=== PATIENT | female | born 1965 | race Caucasian/White ===

== ENCOUNTER 2022-10-29 11:09 | Outpatient (CLI) | payer OTHER, SELFPAY ==
--- NOTE | 2022-10-29 11:30 | CRLHL7_ITS ---
For Patients: As a result of the Cures Act, medical imaging exams and procedure reports are released immediately into your electronic medical record. You may view this report before your referring provider. If you have questions, please contact your health care provider. BILATERAL SCREENING MAMMOGRAM WITH COMPUTER-AIDED DETECTION AND TOMOSYNTHESIS TECHNIQUE: CC and MLO views were obtained. These mammographic images have been obtained using full-field digital technique. These mammographic images were interpreted with the benefit of computer-aided detection. Breast Tomosynthesis was used in this interpretation. COMPARISON FILM: 08/01/21, 07/27/20, 07/01/19. FINDINGS: There are scattered areas of fibroglandular density IMPRESSION: There is no radiographic evidence for malignancy. ASSESSMENT: BI-RADS Category 1: Negative RECOMMENDATION: Routine screening mammogram in 1 year. A lay language report of this examination will be provided to the patient. Nandini Blandon M.D. Diagnostic/Breast Radiologist [email or web address] Transcribed: 12:01 p.[email or web address] babin/Dictated by: Nandini Blandon MD @ 10/30/2022 8:35:00 AM (Electronically Signed)
== END 2022-10-29 11:10 | disposition home or self-care (01) ==
DX: Z12.31 Encounter for screening mammogram for malignant neoplasm of breast (principal)
CPT/HCPCS: 77063; 77067

== ENCOUNTER 2023-11-01 11:16 | Outpatient (CLI) | payer OTHER, SELFPAY ==
--- NOTE | 2023-11-01 11:30 | MM_ITS ---
Patient: AILYN GARCIA Facility:?[facility] Patient ID:?[id number] Site Patient ID:?[id number]. Site :?1965 Study:?XRay-Breast Bilateral 3D W/CAD-11/01/2023 11:46:00 AM Ordering Physician:?Conchis Lopez Final Report: BILATERAL DIGITAL SCREENING MAMMOGRAM WITH TOMOSYNTHESIS AND COMPUTER-AIDED DETECTION CLINICAL HISTORY: Routine screening exam. COMPARISON: 10/29/2022, 08/01/2021, 07/27/2020, 07/01/2019. TECHNIQUE: Digital mammogram in CC and MLO projections including computer-aided detection (CAD). Tomosynthesis utilized. BREAST COMPOSITION: There are areas of scattered fibroglandular density. FINDINGS: RIGHT Breast: Focal asymmetric density retroareolar plane MLO view only 12 cm from the nipple. LEFT Breast: No suspicious findings. IMPRESSION: RIGHT breast asymmetry/mass. RECOMMENDATIONS: Additional mammographic views of the RIGHT breast including 3D spot compression MLO and 3D XCCL. RIGHT breast ultrasound may also be required. BI-RADS Category 0: Incomplete: Need Additional Imaging Evaluation and/or Prior Mammograms for Comparison [facility] will contact the patient for follow-up. A lay language report of this examination will be provided to the patient. Dictated by Cristo Hollis MD @ 11/06/2023 10:10:46 AM jj/Dictated by: Cristo Hollis MD @ 11/06/2023 10:11:00 AM Signed by:?Cristo Hollis MD @11/06/2023 10:22:53 AM (Electronic Signature)
== END 2023-11-01 11:17 | disposition home or self-care (01) ==
PROVIDERS: Visit Provider Nurse Practitioner Family
DX: Z12.31 Encounter for screening mammogram for malignant neoplasm of breast (principal); N63.10 Unspecified lump in the right breast, unspecified quadrant
CPT/HCPCS: 77063; 77067

== ENCOUNTER 2023-11-21 10:27 | Outpatient (CLI) | payer OTHER, SELFPAY ==
--- NOTE | 2023-11-21 10:45 | MM_ITS ---
Patient: AILYN GARCIA Facility:?[facility] Patient ID:?[id number] Site Patient ID:?[id number] Site :?1965 Study:?XRay-Breast Right 3D W/CAD-11/21/2023 11:07:51 AM Ordering Physician:?Not A Local Final Report: DIGITAL DIAGNOSTIC RIGHT MAMMOGRAM USING TOMOSYNTHESIS AND COMPUTER-AIDED DETECTION RIGHT BREAST ULTRASOUND CLINICAL HISTORY: RIGHT breast mass/asymmetry. COMPARISON: 11/01/2023. TECHNIQUE: Digital RIGHT mammogram in two projections. Tomosynthesis and CAD utilized. Real-time ultrasound imaging of RIGHT breast with imaging documentation. BREAST COMPOSITION: There are areas of scattered fibroglandular density. FINDINGS: 3D spot compression CC/MLO RIGHT breast mammogram images submitted. Decreased conspicuity of previously noted asymmetric density. No suspicious mass or architectural distortion. Targeted RIGHT breast ultrasound performed at 9 o`clock 12 cm from the nipple. No fibrocystic change or mass. No suspicious findings. IMPRESSION: No evidence of malignancy. RECOMMENDATIONS: Annual BILATERAL screening mammography. Results and recommendations discussed with the patient. BI-RADS Category 2: Benign A lay language report of this examination will be provided to the patient. Dictated by Cristo Hollis MD @ 11/21/2023 12:00:04 PM [email or web address]/Dictated by: Cristo Hollis MD @ 11/21/2023 12:00:00 PM Signed by:?Cristo Hollis MD @11/21/2023 12:24:31 PM (Electronic Signature)
--- NOTE | 2023-11-21 11:15 | US_ITS ---
Patient: AILYN GARCIA Facility:?[facility] Patient ID:?[id number] Site Patient ID:?[id number] Site :?1965 Study:?US-Breast Right DR ACEVEDO TO READ-11/21/2023 11:13:06 AM Ordering Physician:?LUCIE LA Final Report: PLEASE SEE DIGITAL DIAGNOSTIC RIGHT MAMMOGRAM PERFORMED SAME DAY CRL:olaf babin/Dictated by: Cristo Acevedo MD @ 11/21/2023 12:00:00 PM Signed by:?Cristo Acevedo MD @11/21/2023 12:24:20 PM (Electronic Signature)
== END 2023-11-21 10:28 | disposition home or self-care (01) ==
LOC: MAMMO 10:28
PROVIDERS: Visit Provider Nurse Practitioner
DX: N63.10 Unspecified lump in the right breast, unspecified quadrant (principal); R92.8 Other abnormal and inconclusive findings on diagnostic imaging of breast
CPT/HCPCS: 76642; 77066; G0279

== ENCOUNTER 2024-11-25 12:47 | Outpatient (CLI) | payer MEDICAID, SELFPAY ==
--- NOTE | 2024-11-25 13:00 | CRLHL7_ITS ---
For Patients: As a result of the Century Cures Act, medical imaging exams and procedure reports are released immediately into your electronic medical record. You may view this report before your referring provider. If you have questions, please contact your health care provider. INDICATION: BILATERAL SCREENING MAMMOGRAM, ASYMPTOMATIC 59 Y/O FEMALE COMPARISON: 11/01/23, 10/29/22, 08/01/21 TECHNIQUE: CC and MLO views were obtained. These mammographic images have been obtained using full-field digital technique. These mammographic images were interpreted with the benefit of computer aided detection and tomosynthesis. BREAST COMPOSITION: The breasts are almost entirely fatty. FINDINGS: No suspicious findings. ASSESSMENT: BI-RADS 1 Negative RECOMMENDATION: Annual screening mammogram. A lay language report of this examination will be provided to the patient. Dictated by: Cristo Hollis MD @ 11/26/2024 12:36:38 (Electronically Signed)
== END 2024-11-25 12:48 | disposition home or self-care (01) ==
LOC: MAMMO 12:50
PROVIDERS: Visit Provider Nurse Practitioner
DX: Z12.31 Encounter for screening mammogram for malignant neoplasm of breast (principal)
CPT/HCPCS: 77063; 77067